=== PATIENT | male | born 1975 | race Caucasian/White ===

== ENCOUNTER 2017-12-07 22:44 | Emergency (ER) | payer MEDICARE ==
[2017-12-07 22:52] VITALS: RESP 18; TEMP 99.9
[2017-12-07 23:25] VITALS: BP 165/122; PULSE 126
--- NOTE | 2017-12-07 23:44 | ED ---
General Adult HPI - General Chief complaint: Seizure Stated complaint: Seizure Time Seen by Provider: 12/07/17 23:10 Source: patient, EMS, RN notes reviewed Mode of arrival: EMS Limitations: no limitations - History of Present Illness Initial comments: Patient is a pleasant 42-year-old male presenting to the emergency department with reported seizure. Bystander reported patient started having odd behavior and then had a seizure. Nursing reports that patient was altered when he arrived into the emergency department. Patient does not recall the event however denies any history of seizures. Patient does admit to only sleeping 3 hours over the past 2 days. Patient is also having increased stress recently. Patient does not recall striking his head. No headache. No neck or back pain. No chest pain or dyspnea. No abdominal pain. Patient does have abrasions on his legs however no other complaints. Patient states at this time he is not feel confused and requests discharge. - Related Data Previous Rx's Medication Instructions Recorded Amoxic-Pot Clav 875-125Mg 1 each PO Q12HR #20 tablet 03/05/14 [Augmentin Xr 875-125] Allergies Allergy/AdvReac Type Severity Reaction Status Date / Time No Known Allergies Allergy Verified 03/04/14 15:58 Review of Systems ROS Statement: Those systems with pertinent positive or pertinent negative responses have been documented in the HPI. ROS Other: All systems not noted in ROS Statement are negative. Constitutional: Denies: fever Eyes: Denies: eye pain ENT: Denies: ear pain Respiratory: Denies: cough Cardiovascular: Denies: chest pain Endocrine: Denies: fatigue Gastrointestinal: Denies: abdominal pain Genitourinary: Denies: dysuria Musculoskeletal: Denies: back pain Skin: Reports: other (Abrasion) Neurological: Denies: headache, weakness Psychiatric: Denies: suicidal thoughts Past Medical History Past Medical History: Hypertension Additional Past Medical History / Comment(s): orthopedic problems History of Any Multi-Drug Resistant Organisms: None Reported Past Surgical History: Back Surgery, Orthopedic Surgery Additional Past Surgical History / Comment(s): numerous back and knee surg and right wrist due to injury Past Psychological History: No Psychological Hx Reported Smoking Status: Current every day smoker Past Alcohol Use History: Occasional Past Drug Use History: None Reported General Exam Limitations: no limitations General appearance: alert, in no apparent distress Head exam: Present: atraumatic, normocephalic, normal inspection Eye exam: Present: normal appearance, PERRL, EOMI. Absent: nystagmus ENT exam: Present: normal oropharynx Neck exam: Present: normal inspection Respiratory exam: Present: normal lung sounds bilaterally Cardiovascular Exam: Present: regular rate, normal rhythm GI/Abdominal exam: Present: soft. Absent: tenderness Extremities exam: Present: other (Leg abrasions) Back exam: Present: normal inspection Neurological exam: Present: alert, oriented X3, CN II-XII intact, normal gait. Absent: motor sensory deficit Expanded Neurological exam: Present: protecting the airway Patient oriented to: Present: person, place, time Speech: Present: fluid speech Cranial nerves: EOM's Intact: Normal Sensory exam: Upper Extremity Light Touch: Normal, Lower Extremity Light Touch: Normal Motor strength exam: RUE: 5, LUE: 5, RLE: 5, LLE: 5 Eye Response: (4) open spontaneously Motor Response: (6) obeys commands Verbal Response: (5) oriented Psychiatric exam: Present: normal affect, normal mood Skin exam: Present: abrasion (Bilateral legs) Course Vital Signs 12/07/17 12/07/17 22:45 23:23 Temperature 99.9 F H Pulse Rate 129 H 126 H Respiratory 18 18 Rate Blood Pressure 192/127 165/122 O2 Sat by Pulse 95 95 Oximetry EKG Findings - EKG Comments: EKG Findings:: Sinus tachycardia 125. NC 166. QRS 94. QT 316. QTc 456. Left axis. No acute ST change. Normal QRS. Medical Decision Making - Medical Decision Making Patient is advised of concerns for probable seizure as well as hypertension. Patient is advised further evaluation including computed tomography scan of the head and blood work and treatment for hypertension. Patient refuses this. Patient specifically says he will not agree to that. Patient is alert and oriented 3 and does have a steady gait. No sign of intoxication. Patient does demonstrate medical decision making. Patient will leave AGAINST MEDICAL ADVICE. Patient is warned of warning regarding driving and states he does not drive any help. Patient is advised to strongly follow-up with primary care physician if he refuses treatment at this time. Disposition Clinical Impression: New onset seizure Disposition: Left Against Medical Advice Instructions: New-Onset Seizure in Adults (ED) Additional Instructions: You are leaving AGAINST MEDICAL ADVICE. Please follow-up with your doctor tomorrow. You do need further evaluation and treatment of high blood pressure and probable seizure. No driving unless seizure free for 6 months. Return for fevers, confusion, recurrent seizure, pain, worsening symptoms or any other concerns. Is patient prescribed a controlled substance at d/c from ED?: No Referrals: Km Blair MD [STAFF PHYSICIAN] - 1-2 days Time of Disposition: 23:44
== END 2017-12-07 23:46 | disposition left against medical advice (07) ==
LOC: EC 22:44
DX: S89.91XA Unspecified injury of right lower leg, initial encounter (principal); S89.92XA Unspecified injury of left lower leg, initial encounter; R56.9 Unspecified convulsions; F17.200 Nicotine dependence, unspecified, uncomplicated; Z53.29 Procedure and treatment not carried out because of patient's decision for other reasons
CPT/HCPCS: 93005; 99285

== ENCOUNTER 2018-07-28 11:42 | Emergency (ER) | payer MEDICARE ==
[2018-07-28 11:58] VITALS: RESP 18; TEMP 98.7
--- NOTE | 2018-07-28 12:55 | ED ---
General Adult HPI - General Chief complaint: Extremity Injury, Lower Stated complaint: Knee swelling/pain, chest pain Time Seen by Provider: 07/28/18 12:04 Source: patient, family, RN notes reviewed Mode of arrival: ambulatory Limitations: no limitations - History of Present Illness Initial comments: 43-year-old male presented to the emergency room today with a chief complaint of right knee pain. Patient does admit that this morning he was at a rehab facility or to bend down but some stuff into a locker and felt a pain to the back of the right knee. Patient does states that this pain is different from pain that is had in the past. Admits that his had multiple knee surgeries in the past. States located in the popliteal area. Patient denies any other bites or symptoms. Patient denies any recent fever, chills, shortness of breath, chest pain, back pain, abdominal pain, nausea or vomiting, numbness or tingling, headaches or visual changes, or any other complaints. - Related Data Home Medications Medication Instructions Recorded Confirmed Acetaminophen [Tylenol Arthritis] 650 mg PO Q4H PRN 07/28/18 07/28/18 Ibuprofen [Motrin] 600 mg PO Q6HR PRN 07/28/18 07/28/18 Lisinopril [Zestril] 10 mg PO DAILY 07/28/18 07/28/18 amLODIPine [Norvasc] 5 mg PO DAILY 07/28/18 07/28/18 cloNIDine HCL [Catapres] 0.1 - 0.3 mg PO DAILY 07/28/18 07/28/18 traZODone HCL 50 - 150 mg PO HS PRN 07/28/18 07/28/18 Allergies Allergy/AdvReac Type Severity Reaction Status Date / Time No Known Allergies Allergy Verified 07/28/18 12:28 Review of Systems ROS Statement: Those systems with pertinent positive or pertinent negative responses have been documented in the HPI. ROS Other: All systems not noted in ROS Statement are negative. Past Medical History Past Medical History: Hypertension Additional Past Medical History / Comment(s): migraines, orthopedic problems History of Any Multi-Drug Resistant Organisms: None Reported Past Surgical History: Back Surgery, Orthopedic Surgery Additional Past Surgical History / Comment(s): numerous back and knee surg and right wrist due to injury Past Psychological History: No Psychological Hx Reported Smoking Status: Current every day smoker Past Alcohol Use History: Abuse Past Drug Use History: None Reported General Exam - General Exam Comments Initial Comments: General: The patient is awake and alert, in no distress, and does not appear acutely ill. Eye: There is normal conjunctiva bilaterally. No signs of icterus. Ears, nose, mouth and throat: There are moist mucous membranes and no oral lesions. Neck: The neck is supple, there is no tenderness or JVD. Cardiovascular: There is a regular rate and rhythm. No murmur, rub or gallop is appreciated. Respiratory: Lungs are clear to auscultation, respirations are non-labored, breath sounds are equal. No wheezes, stridor, rales, or rhonchi. Musculoskeletal: Normal appearance of the right knee and leg with no signs of swelling bruising or deformity. Patient's pupils 2+. Sensations are intact. He is tender in the popliteal aspect of the right knee. With bony tenderness on exam. Neurological: A&O x 3. CN II-XII intact, There are no obvious motor or sensory deficits. Coordination appears grossly intact. Speech is normal. Skin: Skin is warm and dry and no rashes or lesions are noted. Psychiatric: Cooperative, appropriate mood & affect, normal judgment. Limitations: no limitations Course Vital Signs 07/28/18 07/28/18 07/28/18 11:54 13:02 14:17 Temperature 98.7 F Pulse Rate 93 96 80 Respiratory 18 18 Rate Blood Pressure 196/136 188/146 194/128 O2 Sat by Pulse 99 99 Oximetry Medical Decision Making - Medical Decision Making Patient reexamined at this time shows no signs of distress. Is resting comfortably. Patient's ultrasound is negative for any evidence of DVT. No evidence for Donaldson's cyst. X-ray does show degenerative changes no acute fracture dislocation. Patient's labs been reviewed unremarkable. Patient blood pressures been elevated here in emergency room. He does admit to history of hypertension. Has been taking his medications. Had his morning meds. He states it has been a long-standing issue. States he has not been to the family doctor recently for it. He is currently in rehab at this time. He states he needed to take care of getting sober first. Patient states he does plan on following with family doctor. He was given Vasotec here in the emergency room there is some improvement of his blood pressure. Patient's asymptomatic otherwise. She is advised to have close follow-up family doctor return here to emergency room for any other concerns. Also advised following up with orthopedics and continued ice elevate the knee has - Lab Data Result diagrams: 07/28/18 13:12 07/28/18 13:12 Lab Results 07/28/18 07/28/18 Range/Units 13:12 13:12 WBC 6.2 (3.8-10.6) k/uL RBC 3.92 L (4.30-5.90) m/uL Hgb 13.8 (13.0-17.5) gm/dL Hct 41.8 (39.0-53.0) % MCV 106.4 H (80.0-100.0) fL MCH 35.3 H (25.0-35.0) pg MCHC 33.2 (31.0-37.0) g/dL RDW 14.5 (11.5-15.5) % Plt Count 195 (150-450) k/uL Neutrophils % 67 % Lymphocytes % 23 % Monocytes % 5 % Eosinophils % 3 % Basophils % 1 % Neutrophils # 4.1 (1.3-7.7) k/uL Lymphocytes # 1.4 (1.0-4.8) k/uL Monocytes # 0.3 (0-1.0) k/uL Eosinophils # 0.2 (0-0.7) k/uL Basophils # 0.0 (0-0.2) k/uL Macrocytosis Moderate Sodium 139 (137-145) mmol/L Potassium 4.1 (3.5-5.1) mmol/L Chloride 103 (98-107) mmol/L Carbon Dioxide 28 (22-30) mmol/L Anion Gap 8 mmol/L BUN 8 L (9-20) mg/dL Creatinine 0.49 L (0.66-1.25) mg/dL Est GFR (CKD-EPI)AfAm >90 (>60 ml/min/1.73 sqM) Est GFR (CKD-EPI)NonAf >90 (>60 ml/min/1.73 sqM) Glucose 98 (74-99) mg/dL Calcium 9.7 (8.4-10.2) mg/dL Total Bilirubin 1.2 (0.2-1.3) mg/dL AST 64 H (17-59) U/L ALT 91 H (21-72) U/L Alkaline Phosphatase 83 (38-126) U/L Total Protein 6.9 (6.3-8.2) g/dL Albumin 4.0 (3.5-5.0) g/dL Disposition Clinical Impression: Knee pain, Elevated blood pressure reading Disposition: HOME SELF-CARE Condition: Good Instructions (If sedation given, give patient instructions): Hypertension (ED) Additional Instructions: Please follow-up with the orthopedic/ family doctor in the next 2 days of symptoms have not improved. Please return to emergency room if the symptoms increase or worsen or for any other concerns. Is patient prescribed a controlled substance at d/c from ED?: No Referrals: None,Stated [Primary Care Provider] - 1-2 days Time of Disposition: 14:51
--- NOTE | 2018-07-28 13:00 | XR ---
EXAMINATION TYPE: XR knee complete RT DATE OF EXAM: 07/28/2018 CLINICAL HISTORY: Chronic worsening right knee pain with no recent injury. TECHNIQUE: Three views of the right knee are obtained. COMPARISON: None. FINDINGS: There is no acute fracture/dislocation evident in right knee. Intramedullary jose raul is seen w ithin the proximal tibial, partially visualized. Surgical anchors from prior ACL repair are present. Healed fracture deformity of the proximal fibula is also identified. Small marginal osteophytes are s een of the medial and lateral compartments as well as the patellofemoral compartments with very minim al patellofemoral compartment joint space narrowing. No suprapatellar joint effusion. Incidentally no juana fabella. IMPRESSION: There is no acute fracture or dislocation in the right knee. Postsurgical change, healed fracture deformity of the proximal fibula, and mild tricompartmental arthropathy.
[2018-07-28] MEDS ORDERED: ENALAPRILAT 1.25 MG/ML 1 ML VIAL IVP STA (13:03)
[2018-07-28] MEDS ORDERED: LORazepam 2 MG/ML INJ IV STA (13:03)
[2018-07-28 13:29] LABS: Basophils % (A) 1 %; Eosinophils # (A) 0.2 k/uL (0-0.7); Eosinophils % (A) 3 %; HCT 41.8 % (39.0-53.0); HGB 13.8 gm/dL (13.0-17.5); Lymphocytes # (A) 1.4 k/uL (1.0-4.8); Lymphocytes % (A) 23 %; MCH 35.3 pg (25.0-35.0); MCHC 33.2 g/dL (31.0-37.0); MCV 106.4 fL (80.0-100.0); Macrocytosis Moderate; Mean Platelet Volume 8.6; Monocytes # (A) 0.3 k/uL (0-1.0); Monocytes % (A) 5 %; Neutrophils # (A) 4.1 k/uL (1.3-7.7); Neutrophils % (A) 67 %; Platelet Count 195 k/uL (150-450); RBC 3.92 m/uL (4.30-5.90); RDW 14.5 % (11.5-15.5); WBC 6.2 k/uL (3.8-10.6)
[2018-07-28 13:32] LABS: ALT 91 U/L (21-72); AST 64 U/L (17-59); Alkaline Phosphatase 83 U/L (38-126); Anion Gap 8 mmol/L; Blood Urea Nitrogen 8 mg/dL (9-20); Calcium 9.7 mg/dL (8.4-10.2); Carbon Dioxide 28 mmol/L (22-30); Chloride 103 mmol/L (98-107); Glucose 98 mg/dL (74-99); Potassium 4.1 mmol/L (3.5-5.1); Sodium 139 mmol/L (137-145); Total Bilirubin 1.2 mg/dL (0.2-1.3); Total Protein 6.9 g/dL (6.3-8.2)
--- NOTE | 2018-07-28 14:06 | US ---
EXAMINATION TYPE: US venous doppler duplex LE RT DATE OF EXAM: 07/28/2018 1:59 PM COMPARISON: NONE CLINICAL HISTORY: Pain. Pain right leg x 1 day. SIDE PERFORMED: Right TECHNIQUE: The lower extremity deep venous system is examined utilizing real time linear array sonog lisandra with graded compression, doppler sonography and color-flow sonography. VESSELS IMAGED: External Iliac Vein (EIV) Common Femoral Vein Deep Femoral Vein Greater Saphenous Vein * Femoral Vein Popliteal Vein Small Saphenous Vein * Proximal Calf Veins (* superficial vessels) Right Leg: Negative for DVT No evidence of DVT in the right lower extremity. IMPRESSION: No evidence for DVT at this time.
[2018-07-28 15:26] VITALS: PULSE 77
[2018-07-28 16:18] VITALS: BP 185/135
== END 2018-07-28 16:15 | disposition home or self-care (01) ==
LOC: EC 11:42
DX: M17.11 Unilateral primary osteoarthritis, right knee (principal); I10 Essential (primary) hypertension; R07.9 Chest pain, unspecified; F17.200 Nicotine dependence, unspecified, uncomplicated; Z98.890 Other specified postprocedural states; Z79.899 Other long term (current) drug therapy
CPT/HCPCS: 36415; 80053; 85025; 73562; 93971; 99284; 96374; 96375; J2060

== ENCOUNTER 2021-06-05 20:36 | Inpatient (IN) | payer MEDICARE ==
[2021-06-05 22:26] LABS: ALT 82 U/L (4-49); AST 74 U/L (17-59); African American GFR (CKD) >90 (>60 ml/min/1.73 sqM); Albumin 4.6 g/dL (3.5-5.0); Alkaline Phosphatase 62 U/L (38-126); Anion Gap 9 mmol/L; Blood Urea Nitrogen 12 mg/dL (9-20); Carbon Dioxide 28 mmol/L (22-30); Chloride 103 mmol/L (98-107); Glucose 111 mg/dL (74-99); Non-African American GFR(CKD) >90 (>60 ml/min/1.73 sqM); Potassium 3.4 mmol/L (3.5-5.1); Sodium 140 mmol/L (137-145); Total Bilirubin 1.7 mg/dL (0.2-1.3); Total Protein 7.9 g/dL (6.3-8.2)
[2021-06-05 22:41] LABS: Basophils % (A) 1 %; Eosinophils % (A) 0 %; HCT 40.1 % (39.0-53.0); HGB 13.7 gm/dL (13.0-17.5); Lymphocytes # (A) 1.3 k/uL (1.0-4.8); Lymphocytes % (A) 19 %; MCH 35.1 pg (25.0-35.0); MCHC 34.3 g/dL (31.0-37.0); MCV 102.3 fL (80.0-100.0); Macrocytosis Slight; Mean Platelet Volume 8.5; Monocytes # (A) 0.6 k/uL (0-1.0); Monocytes % (A) 9 %; Neutrophils # (A) 4.6 k/uL (1.3-7.7); Neutrophils % (A) 69 %; Platelet Count 200 k/uL (150-450); RBC 3.92 m/uL (4.30-5.90); RDW 14.7 % (11.5-15.5); WBC 6.7 k/uL (3.8-10.6)
[2021-06-06] MEDS ORDERED: SODIUM CHLORIDE 0.9% 1,000 ML IV STA (01:42)
[2021-06-06] MEDS ORDERED: LORazepam 2 MG/ML INJ IV STA (01:42)
[2021-06-06] MEDS ORDERED: NALOXONE 0.4 MG/ML 1 ML VIAL IV PRN (01:56)
--- NOTE | 2021-06-06 01:56 | ED ---
General Adult HPI - General Chief complaint: Seizure Stated complaint: Possible seizure Time Seen by Provider: 06/06/21 01:30 Source: patient, family, RN notes reviewed Mode of arrival: wheelchair Limitations: no limitations - History of Present Illness Initial comments: 45-year-old male with a past medical history of hypertension, seizure disorder the emergency room for uncontrolled seizures. Patient has had apparently 5 seizures in the past 3 or 4 days. Patient states he has had these seizures intermittently for 4 years however they have worsened in the past few days. Patient's family member describes them as him starting by staring off into space and then he loses consciousness and his arms shake. Sates they usually last less than a minute and patient is confused afterwards. Patient also admits to drinking. States he usually drinks a fifth of vodka per day but only had one beer today.Patient has no other complaints at this time including shortness of breath, chest pain, abdominal pain, nausea or vomiting, headache, or visual changes. - Related Data Home Medications Medication Instructions Recorded Confirmed Acetaminophen [Tylenol Arthritis] 650 mg PO Q4H PRN 07/28/18 07/28/18 Ibuprofen [Motrin] 600 mg PO Q6HR PRN 07/28/18 07/28/18 amLODIPine [Norvasc] 5 mg PO DAILY 07/28/18 07/28/18 cloNIDine HCL [Catapres] 0.1 - 0.3 mg PO DAILY 07/28/18 07/28/18 lisinopriL [Zestril] 10 mg PO DAILY 07/28/18 07/28/18 traZODone HCL 50 - 150 mg PO HS PRN 07/28/18 07/28/18 Allergies Allergy/AdvReac Type Severity Reaction Status Date / Time No Known Allergies Allergy Verified 06/05/21 21:39 Review of Systems ROS Statement: Those systems with pertinent positive or pertinent negative responses have been documented in the HPI. ROS Other: All systems not noted in ROS Statement are negative. Past Medical History Past Medical History: Hypertension, Seizure Disorder Additional Past Medical History / Comment(s): migraines, orthopedic problems, History of Any Multi-Drug Resistant Organisms: None Reported Past Surgical History: Back Surgery, Orthopedic Surgery Additional Past Surgical History / Comment(s): numerous back and knee surg and right wrist due to injury Past Psychological History: No Psychological Hx Reported Smoking Status: Current every day smoker Past Alcohol Use History: Abuse, Daily Past Drug Use History: Marijuana General Exam Limitations: no limitations General appearance: alert, in no apparent distress Head exam: Present: atraumatic Eye exam: Present: normal appearance, PERRL, EOMI. Absent: scleral icterus, conjunctival injection ENT exam: Present: normal exam, mucous membranes moist Neck exam: Present: normal inspection, full ROM. Absent: tenderness Respiratory exam: Present: normal lung sounds bilaterally. Absent: respiratory distress, wheezes Cardiovascular Exam: Present: regular rate, normal rhythm, normal heart sounds GI/Abdominal exam: Present: soft, normal bowel sounds. Absent: distended, tenderness Neurological exam: Present: alert, oriented X3, other (GCS 15) Course Vital Signs 06/05/21 21:40 Temperature 98.9 F Pulse Rate 97 Respiratory 20 Rate Blood Pressure 162/121 O2 Sat by Pulse 98 Oximetry Medical Decision Making - Medical Decision Making Vitals are stable. Patient is hypertensive in triage however this will be repeated. He does have a history of hypertension. Laboratory evaluation was ob tained through triage. CBC CMP unremarkable. CT brain will be obtained. Seizures likely multifactorial in nature. Could be related to a primary seizure disorder or an alcohol withdrawal disorder. We will start him on a CIWA protocol and admit with neurology consult - Lab Data Result diagrams: 06/05/21 22:02 06/05/21 22:02 Lab Results 06/05/21 06/05/21 Range/Units 22:02 22:02 WBC 6.7 (3.8-10.6) k/uL RBC 3.92 L (4.30-5.90) m/uL Hgb 13.7 (13.0-17.5) gm/dL Hct 40.1 (39.0-53.0) % MCV 102.3 H (80.0-100.0) fL MCH 35.1 H (25.0-35.0) pg MCHC 34.3 (31.0-37.0) g/dL RDW 14.7 (11.5-15.5) % Plt Count 200 (150-450) k/uL MPV 8.5 Neutrophils % 69 % Lymphocytes % 19 % Monocytes % 9 % Eosinophils % 0 % Basophils % 1 % Neutrophils # 4.6 (1.3-7.7) k/uL Lymphocytes # 1.3 (1.0-4.8) k/uL Monocytes # 0.6 (0-1.0) k/uL Eosinophils # 0.0 (0-0.7) k/uL Basophils # 0.0 (0-0.2) k/uL Macrocytosis Slight Sodium 140 (137-145) mmol/L Potassium 3.4 L (3.5-5.1) mmol/L Chloride 103 (98-107) mmol/L Carbon Dioxide 28 (22-30) mmol/L Anion Gap 9 mmol/L BUN 12 (9-20) mg/dL Creatinine 0.83 (0.66-1.25) mg/dL Est GFR (CKD-EPI)AfAm >90 (>60 ml/min/1.73 sqM) Est GFR (CKD-EPI)NonAf >90 (>60 ml/min/1.73 sqM) Glucose 111 H (74-99) mg/dL Calcium 10.0 (8.4-10.2) mg/dL Total Bilirubin 1.7 H (0.2-1.3) mg/dL AST 74 H (17-59) U/L ALT 82 H (4-49) U/L Alkaline Phosphatase 62 (38-126) U/L Total Protein 7.9 (6.3-8.2) g/dL Albumin 4.6 (3.5-5.0) g/dL Disposition Clinical Impression: Intractable seizure disorder, Alcohol withdrawal Disposition: ADMITTED IP TO THIS [facility] Instructions (If sedation given, give patient instructions): Seizure/Epilepsy Discharge Instructions & Follow-Up Is patient prescribed a controlled substance at d/c from ED?: No Referrals: None,Stated [Primary Care Provider] - 1-2 days Time of Disposition: 01:56
[2021-06-06] MEDS ORDERED: LORazepam 2 MG/ML INJ IV PRN ×3 (01:57)
[2021-06-06] MEDS ORDERED: THIAMINE 100 MG/ML 2 ML VIAL IM ONE (02:00)
--- NOTE | 2021-06-06 02:18 | CT ---
EXAMINATION TYPE: CT brain wo con DATE OF EXAM: 06/06/2021 COMPARISON: None HISTORY: possible seizure. no prior on PACS CT DLP: 1188.4 mGycm Automated exposure control for dose reduction was used. Images of the brain obtained without contrast. There is some cerebral cortical atrophy. There is no mass effect or midline shift. There is no sign o f intracranial hemorrhage. Calvarium is intact. There is normal aeration of the mastoid sinuses. IMPRESSION: Mild cerebral atrophy in this relatively young patient. No acute intracranial abnormality.
[2021-06-06] MEDS: HYDROcodone/APAP 5-325MG 1 EACH TAB PO PRN ×3 (03:06→10:14)
[2021-06-06] MEDS: SODIUM CHLORIDE 0.9% 1,000 ML IV SCH ×2 (03:11→10:17)
[2021-06-06] MEDS ORDERED: cloNIDine HCL 0.1 MG TAB PO STA (03:33)
[2021-06-06] MEDS ORDERED: lisinopriL 10 MG TAB PO STA (03:33)
[2021-06-06 06:43] VITALS: RESP 18
[2021-06-06] MEDS ORDERED: POTASSIUM CHLORIDE ER 20 MEQ TAB.ER PO STA (10:49)
--- NOTE | 2021-06-06 10:59 | P.CNNES ---
History of Present Illness Consult date: 06/06/21 Requesting physician: Ezekiel Cox Reason for Consult: seizure disorder History of Present Illness: This is a 45-year-old gentleman with medical history of reported seizure, hypertension and significant alcohol use, tobacco use who presented to the emergency department on 06/05/2021 for uncontrolled seizures. Some of the history is obtained from medical records. According to the patient she's been having seizure-like episodes for last 12 years and upon asking him about his seizure episode she stated that he loses consciousness and he was told that he has generalized shaken and sometimes he'll bite his tongue and that there is episode that he had urinary incontinence. He denies any aura with these episodes. He says that the he never seen an neurologist or primary care to address these seizure-like episodes. He says that he has significant alcohol use and he'll drink about a fifth of vodka daily. Patient told me his last drink given Friday or Friday He says that the his seizure-like episodes are controlled when his pain is controlled and he has alcohol in his system. Upon asking him if the he has she seizure-like episodes when the he stops drinking initially says yes the later he said no. Patient denies any the seizure as a child or any family history of seizure. Patient denies being on any antiepileptic drugs since he he never had these seizure-like episodes addressed. Per the ED note seems to the patient the family notified the ED team and the patient's been having 5 seizure in the past 3-4 days and and he has been having seizure for last 4 years but worse in last few days. Family member described the seizures are staring off in space and would lose consciousness and his arm which ache and the episode would last less than a minute and then the patient will be post ictal confusion. This seems to the patient the admitted to the ED team that he drinks on a daily basis and he drinks about a fifth of vodka per day only had one beer in the last day. Of note the patient stated that she has the depression as well as douglas. Some other workup in the hospital consisted of: Initial vital signs his blood pressure 162/121, heart rate of 97, respiratory of 20, temperature of 98.9 Fahrenheit oral, pulse ox of 98% room air. MCV is 102, hematocrit is 40.1, hemoglobin 13.7 otherwise rest of CBC with differential is unremarkable. Potassium 3.4, serum glucose 111, AST of 74, ALT of 82 otherwise the chemistry panel is unremarkable. Serum alcohol level is less than 10. CT of the head is reported as mild cerebral atrophy and relatively young patient. No acute intracranial abnormality. I personally reviewed the CT of the head and there is no acute or subacute ischemia and there is no typical hemorrhage at. The patient does have possible mild bilateral frontal atrophy possibly due to significant alcohol use. In the ED the patient was given 1 mg of Ativan then was started on CIWA protocol. It seems last Ativan is at 5:05 today. Review of Systems Review of system: The 12 point system was reviewed and apparent positive and negative per HPI. Past Medical History Past Medical History: Hypertension, Seizure Disorder Additional Past Medical History / Comment(s): migraines, orthopedic problems, History of Any Multi-Drug Resistant Organisms: None Reported Past Surgical History: Back Surgery, Orthopedic Surgery Additional Past Surgical History / Comment(s): numerous back and knee surg and right wrist due to injury Past Psychological History: No Psychological Hx Reported Smoking Status: Current every day smoker Past Alcohol Use History: Abuse, Daily Past Drug Use History: Marijuana Medications and Allergies Home Medications Medication Instructions Recorded Confirmed Type No Known Home Medications 06/06/21 06/06/21 History Allergies Allergy/AdvReac Type Severity Reaction Status Date / Time No Known Allergies Allergy Verified 06/06/21 07:53 Physical Examination - Vital Signs Vital Signs: Vital Signs Temp Pulse Resp BP Pulse Ox 06/06/21 07:42 69 18 93/67 97 06/06/21 06:43 76 18 105/74 98 06/06/21 03:13 97 16 164/123 99 06/05/21 21:40 98.9 F 97 20 162/121 98 Intake and Output 06/05/21 06/06/21 06/06/21 22:59 06:59 14:59 Other: Weight 99.79 kg GENERAL: The patient is lying in bed and is not in acute distress. CHEST: The heart rate is regular rate rhythm. No murmurs to auscultation. LUNG: Clear to auscultation bilaterally no wheezing noted throughout. Not labored breathing. ABDOMEN/GI: Bowel sounds present in all 4 quadrants. No tenderness to palpation throughout. PSYCH: Tangential. NEUROLOGICAL: Higher mental function: The patient is awake, alert, oriented to self, place and time. Patient is following commands. No aphasia and no neglect. Cranial nerves: The pupils are round, equal and reactive to light and accommodation. Visual kapoor are full to confrontation throughout. Extraocular movement is intact no nystagmus is noted. Facial sensation is normal to touch throughout. The facial strength is normal throughout. Hearing is normal bilaterally to hand rub. Tongue is midline and moved [id number] without any difficulty. Has tongue bite on left lateral side. No dysarthria is noted. Shoulder shrug is normal bilaterally. Motor: The strength is 5 over 5 throughout. Normal tone and bulk. Cerebellum: Normal finger to nose bilaterally. Sensation: Sensation is normal to touch throughout. Reflexes (right/left): 2+ throughout. Plantars are mute bilaterally. Results - Laboratory Findings CBC and BMP: 06/05/21 22:02 02 22:02 Abnormal Lab Findings: Abnormal Labs 06/05/21 06/05/21 22:02 22:02 RBC 3.92 L MCV 102.3 H MCH 35.1 H Potassium 3.4 L Glucose 111 H Total Bilirubin 1.7 H AST 74 H ALT 82 H Assessment and Plan Assessment: Breakthrough seizure-like that was reported by family members: Possibly provoked by alcohol withdrawal History of reported seizure disorder for past 12 years (unsure if patient has true seizure due to epileptic in nature or due to alcohol withdrawal) Significant alcohol use and drinks 1 pint of vodka a day. Serum alcohol level was less than 10 Tobacco use Major depression (per patient) Douglas (per patient) Plan: * I ordered a routine EEG. I'll not start the patient on antiepileptic drug unless there is epileptiform discharges or seizure on EEG. If no seizures are captured on EEG I recommend the patient to have a prolonged EEG as an outpatient to capture these events whether the are truly epileptic in nature versus nonepileptic/due to alcohol withdrawal. * Patient refuses to be on antiepileptic drugs. He stated that pain control and alcohol use controls the seizure-like episode. * Recommend MRI of the brain with and without seizure protocol. * Every 4 hours neuro checks * Placed on seizure precaution and seizure pads * Ordered vitamin B12, serum folate. * Continue thiamine 100 mg 1 tablet twice a day. Patient was given thiamine 100 mg IM in the ED * Patient is on CIWA protocol and will defer management to the primary team. * Recommend psychiatry consultation. * We'll defer the rest of the medical management to the primary team. * Patient was counseled on tobacco cessation and alcohol cessation. * Per [facility] because of the seizure-like episodes the patient cannot drive for 6 month until seizure free, to avoid heights, to avoid swimming unassisted and using heavy machinery. * Upon discharge the patient needs to follow-up with a neurologist as outpatient within 1-2 weeks. The plan is discussed with the patient's nurse. Thank you for the consultation. David Rea M.D. Neuro-Hospitalist Time with Patient: Greater than 30
[2021-06-06 11:59] VITALS: BP 120/85; PULSE 87; TEMP 97.5
--- NOTE | 2021-06-06 12:37 | P.HPIM ---
History of Present Illness Patient is a 45-year-old male was brought in by family members because of concerns of seizures patient had a similar episodes in the past as per the patient all these episodes happen whenever he cuts down on drinking patient usually drinks more than a pint of hard liquor that is what, history he only drank about one beer. Patient to episode was described as generalized shaking sometimes type bites is standing and at 1 time he did even lose incontinence. As per the ER documentation patient has stating and confusion and loss of consciousness. Patient was never diagnosed with seizures in the past and not on any antiseizure medications patient is tender ALP bit elevated today but because of alcoholic hepatitis. Patient had an EEG which did not show any seizure focus. Patient was a valid by neurology and patient declined any antiseizure medications and also not willing to quit alcohol. Patient is presently on Ativan CIWA protocol REVIEW OF SYSTEMS: CONSTITUTIONAL: No fever, no malaise, no fatigue. HEENT: No recent visual problems or hearing problems. Denied any sore throat. CARDIOVASCULAR: No chest pain, orthopnea, PND, no palpitations, no syncope. PULMONARY: No shortness of breath, no cough, no hemoptysis. GASTROINTESTINAL: No diarrhea, no nausea, no vomiting, no abdominal pain. NEUROLOGICAL: No headaches, no weakness, no numbness. HEMATOLOGICAL: Denies any bleeding or petechiae. GENITOURINARY: Denies any burning micturition, frequency, or urgency. MUSCULOSKELETAL/RHEUMATOLOGICAL: Denies any joint pain, swelling, or any muscle pain. ENDOCRINE: Denies any polyuria or polydipsia. The rest of the 14-point review of systems is negative. PHYSICAL EXAMINATION: GENERAL: The patient is alert and oriented x3, not in any acute distress. Well developed, well nourished. HEENT: Pupils are round and equally reacting to light. EOMI. No scleral icterus. No conjunctival pallor. Normocephalic, atraumatic. No pharyngeal erythema. No thyromegaly. CARDIOVASCULAR: S1 and S2 present. No murmurs, rubs, or gallops. PULMONARY: Chest is clear to auscultation, no wheezing or crackles. ABDOMEN: Soft, nontender, nondistended, normoactive bowel sounds. No palpable organomegaly. MUSCULOSKELETAL: No joint swelling or deformity. EXTREMITIES: No cyanosis, clubbing, or pedal edema. NEUROLOGICAL: Gross neurological examination did not reveal any focal deficits. SKIN: No rashes. Assessment and plan -Possibility of further seizure. Patient's EEG is negative neurology evaluated the patient and recommending a prolonged EEG to see whether this truly epileptic or nonepileptic alcohol withdrawal seizures. Patient declined any medications for seizures at this time at this time patient was instructed not to drive for 6 months and avoid heights and avoid swimming unassisted and using heavy machi frank. - nicotine use: Counseling was provided -Alcohol use counseling was provided with patient is not willing to call -Nicotine use counseling was provided -Elevated liver enzymes secondary to alcoholism and alcoholic hepatitis Had a lengthy discussion with the patient was not willing to quit alcohol at all and patient wants to switch 2 beers. Patient did declined any antiseizure medications because of which nothing can be offered here and will not benefit from any further hospitalization. Patient will be discharged today. Although patient is insisting that he will need [facility] upon discharge which she says he is disabled. Patient appears to have narcotic seeking behavior as well and declined to give him any opiate pain medications as I do not see any obvious reason for that. Past Medical History Past Medical History: Hypertension, Osteoarthritis (OA), Seizure Disorder Additional Past Medical History / Comment(s): Seizures which pt denies are r/t alcohol withdrawal/seizures started in 2009, multiple injuries/fractures during lifetime including cervical fractures/back fractures, arthritis in multiple joints, past R index finger cellulitis History of Any Multi-Drug Resistant Organisms: None Reported Past Surgical History: Back Surgery, Orthopedic Surgery Additional Past Surgical History / Comment(s): Multiple/numerous orthopedic norman rgeries mostly for injuries including back cage/lumbar decompression and fusion, vasectomy Past Anesthesia/Blood Transfusion Reactions: No Reported Reaction Smoking Status: Current every day smoker - Past Family History Father History Unknown: Yes Mother Family Medical History: COPD Additional Family Medical History / Comment(s): Mother is , she was a smoker and had back surgery. Medications and Allergies Home Medications Medication Instructions Recorded Confirmed Type No Known Home Medications 06/06/21 06/06/21 History Allergies Allergy/AdvReac Type Severity Reaction Status Date / Time No Known Allergies Allergy Verified 06/06/21 07:53 Physical Exam Vitals: Vital Signs Temp Pulse Pulse Resp BP BP Pulse Ox 06/06/21 11:26 97.5 F L 87 18 120/85 98 06/06/21 10:03 97.6 F 75 18 103/69 100 06/06/21 07:42 69 18 93/67 97 06/06/21 06:43 76 18 105/74 98 06/06/21 03:13 97 16 164/123 99 06/05/21 21:40 98.9 F 97 20 162/121 98 Intake and Output 06/05/21 06/06/21 06/06/21 22:59 06:59 14:59 Other: Weight 99.79 kg 99.79 kg Results CBC & Chem 7: 06/05/21 22:02 06/05/21 22:02 Labs: Abnormal Lab Results - Last 24 Hours (Table) 06/05/21 06/05/21 06/06/21 Range/Units 22:02 22:02 02:41 RBC 3.92 L (4.30-5.90) m/uL MCV 102.3 H (80.0-100.0) fL MCH 35.1 H (25.0-35.0) pg Potassium 3.4 L (3.5-5.1) mmol/L Glucose 111 H (74-99) mg/dL Magnesium 1.5 L (1.6-2.3) mg/dL Total Bilirubin 1.7 H (0.2-1.3) mg/dL AST 74 H (17-59) U/L ALT 82 H (4-49) U/L Thrombosis Risk Factor Assmnt - Choose All That Apply Any of the Below Risk Factors Present?: Yes Each Factor Represents 1 point: Age 41-60 years, Obesity (BMI >25) Other Risk Factors: No Other congenital or acquired thrombophilia - If yes, enter type in comment: No Thrombosis Risk Factor Assessment Total Risk Factor Score: 2 Thrombosis Risk Factor Assessment Level: Low Risk
--- NOTE | 2021-06-06 12:39 | P.DS ---
Providers Date of admission: 06/06/21 07:59 Attending physician: Dee Calvillo Consults: 06/06/21 01:57 Consult Physician Routine Consulting Provider: David Rea Consult Reason/Comments: seizure disorder Do you want consulting provider notified?: Yes Primary care physician: Stated None Hospital Course: Please refer to my history of present illness for further details. Plan - Discharge Summary Discharge Rx Participant: No New Discharge Prescriptions: New Thiamine [Vitamin B-1] 100 mg PO DAILY #30 tablet Discharge Medication List Thiamine [Vitamin B-1] 100 mg PO DAILY #30 tablet 06/06/21 [Rx] Follow up Appointment(s)/Referral(s): Salima Jackson MD [Medical Doctor] - 1 Week None,Stated [Primary Care Provider] - 1-2 days Patient Instructions/Handouts: Seizure/Epilepsy Discharge Instructions & Follow-Up
[2021-06-06] MEDS ORDERED: MAGNESIUM SULFATE-D5W PMX 1 GM in DEXTROSE/WATER 1 100ML.BAG IVPB SCH (13:00)
--- NOTE | 2021-06-06 13:22 | EEG ---
ELECTROENCEPHALOGRAM REPORT DATE OF SERVICE: 06/06/2021. CLINICAL HISTORY: This is a 45-year-old gentleman with history of reported seizure-like episodes and significant alcohol use who presented to the emergency department because of reported recurrent seizures. The routine video EEG is obtained to evaluate for seizure epileptiform activity. RELEVANT MEDICATION: Ativan. EEG TYPE: A routine 21-channel EEG is performed with video using the 10/20 electrode placement system. DESCRIPTION: Wakefulness and drowsiness are obtained. During awake state the posterior- dominant rhythm consists of low to moderate voltage of 8.5 to 9 hertz activity that is well modulated and well sustained. There is no physiological stage 2 sleep architecture. There is no focal slowing. There is diffuse excessive fast activity. Interictal and ictal is none. ACTIVATION PROCEDURE: Photic stimulation did not evoke a posterior driving response. There is no abnormality during the photic stimulation. Hyperventilation is not performed. CLINICAL INTERPRETATION: This is a normal routine EEG during awake state. There is no focal slowing, epileptiform discharge or seizure on the EEG. The excessive fast activity is likely due to medication effect (Ativan). Clinical correlation is recommended. RECOMMENDATION: If there continues to be a concern for seizure, recommend prolonged EEG. MMODL / IJN: [id number] / GINO
[2021-06-06] MEDS ORDERED: THIAMINE 100 MG TAB PO SCH (17:30)
[2021-06-06 18:11] LABS: Folate, Serum 4.7 ng/mL (4.40-31.00)
[2021-06-06] MEDS ORDERED: FAMOTIDINE 20 MG TAB PO SCH (21:00)
[2021-06-07] MEDS ORDERED: ENOXAPARIN 40 MG/0.4 ML SYRINGE SQ SCH (09:00)
== END 2021-06-06 14:15 | disposition home or self-care (01) | DRG 101 ==
LOC: EC 20:36 → 5NMEDONC 06-06 07:59
PROVIDERS: ADMIT Hospitalist; ATTEND Hospitalist
PROC: HZ2ZZZZ Detoxification Services for Substance Abuse Treatment (ICD-10-PCS; principal; 2021-06-06)
DX: R56.9 Unspecified convulsions (principal); F10.239 Alcohol dependence with withdrawal, unspecified; K70.10 Alcoholic hepatitis without ascites; G31.89 Other specified degenerative diseases of nervous system; Z20.822 Contact with and (suspected) exposure to COVID-19; G43.909 Migraine, unspecified, not intractable, without status migrainosus; F17.210 Nicotine dependence, cigarettes, uncomplicated; F32.9 Major depressive disorder, single episode, unspecified; I10 Essential (primary) hypertension; M19.90 Unspecified osteoarthritis, unspecified site; R32 Unspecified urinary incontinence; Z76.5 Malingerer [conscious simulation]; Z71.6 Tobacco abuse counseling; Z71.41 Alcohol abuse counseling and surveillance of alcoholic; Z87.81 Personal history of (healed) traumatic fracture
CPT/HCPCS: 36415; 70450; 80053; 80320; 82607; 82746; 83735; 85025; 87635; 93005; 95819; 99285